=== PATIENT | male | born 1960 | race Caucasian/White ===

== ENCOUNTER 2023-08-24 08:18 | Outpatient (CLI) | payer MEDICAID, MEDICARE ==
[~2023-08-24 08:18] MED LIST: IBUP-1051 PO
== END 2023-08-24 23:59 | disposition home or self-care (01) ==
LOC: RT 08:18
PROVIDERS: ATTEND Nurse Practitioner Family
DX: R06.02 Shortness of breath (principal)
CPT/HCPCS: 94010

== ENCOUNTER 2024-09-27 17:38 | Emergency (ER) | payer MEDICARE, MEDICAID ==
[~2024-09-27] VITALS: Ht 180.3 cm; Wt 97.1 kg
[2024-09-27 17:39] VITALS: BP 157/73; PULSE 76; TEMP 97.9; O2SAT 95
[2024-09-27 19:36] VITALS: RESP 16
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
== END 2024-09-27 20:28 | disposition home or self-care (01) ==
LOC: ER 17:38
DX: T18.108A Unspecified foreign body in esophagus causing other injury, initial encounter (principal); W44.9XXA Unspecified foreign body entering into or through a natural orifice, initial encounter; Y93.89 Activity, other specified; Y92.89 Other specified places as the place of occurrence of the external cause; Y99.8 Other external cause status
CPT/HCPCS: 99281